=== PATIENT | female | born 1950 | race Caucasian/White ===

== ENCOUNTER → 2020-12-04 | Outpatient (CLI) | payer MEDICARE, OTHER | LOC: PT 08:57 | DX: M17.11 Unilateral primary osteoarthritis, right knee (principal) ==

== ENCOUNTER 2020-12-24 08:57 | Outpatient (RCR) | payer MEDICARE, OTHER | END 2021-03-24 | disposition home or self-care (01) | LOC: PT | DX: M17.11 Unilateral primary osteoarthritis, right knee (principal) ==

== ENCOUNTER 2021-06-22 16:11 | Emergency (ER) | payer MEDICARE, OTHER ==
[~2021-06-22] VITALS: Ht 167.6 cm; Wt 90.9 kg
[2021-06-22 18:31] VITALS: BP 140/60
== END 2021-06-22 18:37 | disposition home or self-care (01) ==
LOC: ED 16:11
DX: R05.9 Cough, unspecified (principal)

== ENCOUNTER 2021-09-11 09:26 | Outpatient (RCR) | payer MEDICARE, OTHER | END 2021-09-24 | disposition still patient (30) | LOC: OT | DX: S52.532D Colles' fracture of left radius, subsequent encounter for closed fracture with routine healing (principal); X58.XXXD Exposure to other specified factors, subsequent encounter ==

== ENCOUNTER 2021-10-08 12:55 | Outpatient (RCR) | payer MEDICARE, OTHER | END 2021-10-24 | disposition home or self-care (01) | LOC: PT → EDSTATUS 12:55 → PT 12:55 | DX: R29.6 Repeated falls (principal) ==

== ENCOUNTER → 2021-10-15 | Outpatient (CLI) | payer MEDICARE, OTHER | LOC: RAD 08:02 | DX: R29.6 Repeated falls (principal) | CPT/HCPCS: Q9967 ==

== ENCOUNTER 2021-10-22 10:54 | Outpatient (RCR) | payer MEDICARE, OTHER | END 2021-10-24 | disposition home or self-care (01) | LOC: PT | DX: Z98.890 Other specified postprocedural states (principal); Z87.81 Personal history of (healed) traumatic fracture ==

== ENCOUNTER 2021-10-25 08:28 | Outpatient (RCR) | payer MEDICARE, OTHER | END 2021-11-24 | disposition home or self-care (01) | LOC: PT | DX: Z98.890 Other specified postprocedural states (principal); Z87.81 Personal history of (healed) traumatic fracture ==

== ENCOUNTER 2021-10-25 08:28 | Outpatient (RCR) | payer MEDICARE, OTHER | END 2021-11-24 | disposition home or self-care (01) | LOC: PT | DX: R29.6 Repeated falls (principal) ==

== ENCOUNTER 2021-11-26 07:49 | Outpatient (RCR) | payer MEDICARE, OTHER | END 2021-12-25 | disposition home or self-care (01) | LOC: PT | DX: Z98.890 Other specified postprocedural states (principal); Z87.81 Personal history of (healed) traumatic fracture ==

== ENCOUNTER 2021-11-26 07:50 | Outpatient (RCR) | payer MEDICARE, OTHER | END 2021-12-25 15:39 | disposition home or self-care (01) | LOC: PT 07:50 | DX: R29.6 Repeated falls (principal) ==

== ENCOUNTER 2021-12-20 09:00 | Outpatient (RCR) | payer MEDICARE, OTHER | END 2021-12-25 | disposition home or self-care (01) | LOC: OT | DX: M25.642 Stiffness of left hand, not elsewhere classified (principal) ==

== ENCOUNTER 2021-12-27 08:19 | Outpatient (RCR) | payer MEDICARE, OTHER | END 2022-01-24 | disposition home or self-care (01) | LOC: OT | DX: M25.642 Stiffness of left hand, not elsewhere classified (principal) ==

== ENCOUNTER 2022-01-29 13:00 | Outpatient (RCR) | payer MEDICARE, OTHER | END 2022-02-24 | disposition home or self-care (01) | LOC: PT | DX: Z98.890 Other specified postprocedural states (principal); Z87.81 Personal history of (healed) traumatic fracture ==